=== PATIENT | male | born 1995 | race Caucasian/White ===

== ENCOUNTER 2018-10-08 19:33 | Emergency (ER) | payer SELFPAY ==
--- NOTE | 2018-10-08 19:36 | ER Report ---
History and Physical Time Seen By MD: 19:33 HPI/ROS CHIEF COMPLAINT: fall, shoulder injury HISTORY OF PRESENT ILLNESS: This is a 23 year old male. He fell while longboarding, fell on left side. Shoulder pain, deformity, worsens with movement. Normal sensation. No history of prior shoulder injury. Allergies: Coded Allergies: No Known Drug Allergies (Unverified , 10/08/18) Reviewed Nurses Notes: Yes Constitutional Vital Sign - Last 24 Hours 10/08/18 10/08/18 10/08/18 10/08/18 19:33 19:37 19:37 19:38 Temp 98.4 Pulse ??? 84 91 Resp 19 B/P (MAP) 126/96 126/96 (106) Pulse Ox 94 88 O2 Delivery Room Air 10/08/18 10/08/18 10/08/18 10/08/18 19:43 19:48 19:53 19:54 Pulse 88 92 94 Resp 14 11 15 B/P (MAP) 142/91 (108) Pulse Ox 96 97 98 10/08/18 10/08/18 10/08/18 10/08/18 19:58 20:00 20:03 20:05 Pulse 95 96 Resp 15 22 B/P (MAP) 142/89 (106) 137/77 (97) 127/75 (92) Pulse Ox 100 100 10/08/18 10/08/18 10/08/18 10/08/18 20:08 20:11 20:13 20:15 Pulse 94 95 Resp 12 12 B/P (MAP) 131/86 (101) 130/74 (92) Pulse Ox 99 99 10/08/18 10/08/18 10/08/18 10/08/18 20:18 20:20 20:23 20:25 Pulse 97 93 Resp 11 13 B/P (MAP) 119/73 (88) 109/60 (76) Pulse Ox 99 99 10/08/18 10/08/18 10/08/18 10/08/18 20:28 20:30 20:33 20:35 Pulse 94 95 Resp 19 14 B/P (MAP) 122/69 (86) 117/60 (79) Pulse Ox 98 99 10/08/18 10/08/18 10/08/18 10/08/18 20:38 20:40 20:45 20:50 Pulse 96 96 96 Resp 15 11 18 B/P (MAP) 123/57 (79) 113/80 (91) Pulse Ox 99 92 99 10/08/18 20:55 Pulse 93 Pulse Ox 100 Physical Exam General: Alert, some distress due to pain. Musculoskeletal: Patient with deformity that looks like dislocation. Pain with movement, but no pain with palpation. Neuro: Normal sensation. Skin: Abrasion on elbow. Cardio: Normal cap refill and pulses. Medical Decision Making EKG/Imaging Imaging EXAMINATION: Left shoulder radiographs 2 views HISTORY: Fell on left shoulder. Shoulder pain. Suspected dislocation. COMPARISON: None. FINDINGS: AP and transscapular Y views of the left shoulder are obtained. Bones: No evidence of acute fracture. Joint spaces: Anterior dislocation of the humeral head. Hardware: None. Soft tissues/visualized lungs: Negative. IMPRESSION: Anterior dislocation of the left humeral head. No evidence of acute fracture. Report Dictated By: Jc Valentine MD at 10/08/2018 7:59 PM SHOULDER MIN 2 VIEWS LEFT Indication: Reduction of dislocation. Comparison: Exam done earlier in the day. Findings: 2 views of the left shoulder. Successful reduction of the previous dislocation. No discrete fracture. No dislocation, bony lesions or degenerative changes. Soft tissues are unremarkable. IMPRESSION: 1. Successful reduction of the previous dislocation. No discrete fracture. Report Dictated By: Dennis Miranda at 10/08/2018 8:37 PM ED Course/Re-evaluation Clinical Indication for ER IV: Hydration, IV Access ED Course IV started. Fentanyl given for pain. X-ray obtained, with dislocation demonstrated. Relocated and repeat imaging shows no fracture. Sling with instructions to follow-up with orthopedic surgery. Procedure: Procedural sedation. A pre-sedation evaluation was completed on the patient. Patient is an appropriate candidate for procedural sedation. The risks of the sedation were discussed with the patient. A time out was completed. The patient was reevaluated immediately prior to initiation of sedation. The patient was sedated with Propofol. The patient was monitored with continuous pulse oximetry and quality assurance monitor final. There were no complications of breathing and no significant hypoxemia. There was infiltration of the IV with the first 40ml of Profol. IV was stopped and another restarted. No problems noted with the infiltration. I remained at the bedside for the sedation. The total time I spent in the procedural sedation was 20 minutes. Post sedation evaluation: Patient was alert and cooperative, hemodynamically stable with appropriate respiratory status, temperature and pain control without ongoing nausea and vomiting. Procedure: Dislocation reduction: The shoulder was reduced in the usual fashion without complications. Post reduction the patient's neurovascular exam is normal. Post reduction x-ray demonstrates reduction of the joint to the anatomic position. The procedure was performed by myself. Decision to Disposition Date: Oct 08, 2018 Decision to Disposition Time: 20:52 Depart Departure Latest Vital Signs Vital Signs Date Time Temp Pulse Resp B/P (MAP) Pulse Ox O2 Delivery O2 Flow Rate FiO2 10/08/18 20:55 93 100 10/08/18 20:50 18 10/08/18 20:45 113/80 (91) 10/08/18 19:37 98.4 Room Air Impression: Primary Impression: Shoulder dislocation Condition: Improved Disposition: HOME OR SELF-CARE Patient Instructions: Shoulder Dislocation (ED) Additional Instructions: Ibuprofen 200mg over the counter tablets, take 4 tablets three times a day with food. Apply ice 20 minutes every 1-2 hours while awake. Wear the sling until you follow-up with orthopedic surgery. Call [facility] on Wednesday to schedule a follow-up visit with them for this week. Problem Qualifiers Primary Impression: Shoulder dislocation Encounter type: initial encounter Laterality: left Qualified Codes: S43.005A - Unspecified dislocation of left shoulder joint, initial encounter LENA MORRIS MD Oct 08, 2018 19:36
[2018-10-08] MEDS ORDERED: fentaNYL CITR 100 MCG/2 ML AMP IVP ONE (19:40)
[2018-10-08] MEDS ORDERED: PROPOFOL EMUL 10MG/ML 20 ML VL IV ONE (19:40)
[2018-10-08] MEDS ORDERED: NS(*) 0.9% 1000 ML BAG 1,000 ML IV ONE (19:40)
--- NOTE | 2018-10-08 20:07 | RADIOLOGY IMAGING REPORT ---
FACILITY: [facility] - [place] PATIENT NAME: Justen Joseph : 1995 MR: [id number] V: [id number] EXAM DATE: ORDERING PHYSICIAN: LENA MORRIS TECHNOLOGIST: Location: [facility] [place] Patient: Justen Joseph : 1995 Visit/Account:[id number] Date of Sevice: 10/08/2018 EXAMINATION: Left shoulder radiographs 2 views HISTORY: Fell on left shoulder. Shoulder pain. Suspected dislocation. COMPARISON: None. FINDINGS: AP and transscapular Y views of the left shoulder are obtained. Bones: No evidence of acute fracture. Joint spaces: Anterior dislocation of the humeral head. Hardware: None. Soft tissues/visualized lungs: Negative. IMPRESSION: Anterior dislocation of the left humeral head. No evidence of acute fracture. Report Dictated By: Jc Valentine MD at 10/08/2018 7:59 PM Report E-Signed By: Jc Valentine MD at 10/08/2018 8:01 PM WSN:[id number]
[2018-10-08 20:45] VITALS: BP 113/80
--- NOTE | 2018-10-08 20:45 | RADIOLOGY IMAGING REPORT ---
FACILITY: [facility] PATIENT NAME: Justen Joseph : 1995 MR: [id number] V: [id number] EXAM DATE: ORDERING PHYSICIAN: LENA MORRIS TECHNOLOGIST: Location: [facility] - [place] Patient: Justen Joseph : 1995 Visit/Account:[id number] Date of Sevice: 10/08/2018 SHOULDER MIN 2 VIEWS LEFT Indication: Reduction of dislocation. Comparison: Exam done earlier in the day. Findings: 2 views of the left shoulder. Successful reduction of the previous dislocation. No discrete fracture. No dislocation, bony lesions or degenerative changes. Soft tissues are unremarkable. IMPRESSION: 1. Successful reduction of the previous dislocation. No discrete fracture. Report Dictated By: Dennis Miranda at 10/08/2018 8:37 PM Report E-Signed By: Dennis Miranda at 10/08/2018 8:39 PM WSN:[id number]
== END 2018-10-08 20:59 | disposition home or self-care (01) ==
LOC: ER 19:57
DX: S43.005A Unspecified dislocation of left shoulder joint, initial encounter (principal)
CPT/HCPCS: 23650; 73030; 96374; 99152; 99285; A4565; J2704; J3010; J7030